=== PATIENT | male | born 1990 | race Caucasian/White ===

== ENCOUNTER 2020-06-10 11:31 | Emergency (ER) | payer BC, SELFPAY ==
[2020-06-10 11:39] VITALS: BP 146/97; PULSE 67; RESP 16; TEMP 36.8; O2SAT 100; BMI 20.7
--- NOTE | 2020-06-10 12:04 | ED_ITS ---
HPI - Wound/Laceration <Rima Luevano PA-C - Last Filed: 06/10/20 13:46> General Chief Complaint: Wound/Laceration Stated Complaint: wound to thumb left hand Time Seen by Provider: 06/10/20 11:51 Source: patient Mode of arrival: Ambulatory Limitations: no limitations History of Present Illness HPI narrative: Is a healthy 29-year-old male presents with complaints of laceration to his left thumb at the base of the thumb on top. He says he was moving some boxes and when he lifted a box up put in place as he was withdrawing his hand he cut it on the corner of the cardboard box. He did not really feel any pain but he realized he had hurt himself when he noticed that his base of his thumb was bleeding. He has no other complaints or concerns this is an isolated complaint. Onset (ago): minute(s) (40) Extremity Location: Left: hand (base of thumb (posterior)) Place: home Patient tetanus UTD: Yes Context: accidental Associated symptoms: pain Treatments prior to arrival: bandage Related Data Allergies Allergy/AdvReac Type Severity Reaction Status Date / Time No Known Drug Allergies Allergy Verified 06/10/20 11:39 Review of Systems <Rima Luevano PA-C - Last Filed: 06/10/20 13:46> Review of Systems Narrative: GENERAL: Denies chills, fatigue, malaise, fever, sweats. HEENT: Denies sinus pain, ear pain, sore throat, difficulty swallowing, dizziness. RESPIRATORY: Denies dyspnea, cough, wheezing, hemoptysis, sputum. CARDIOVASCULAR: Denies chest pain, palpitations, orthopnea, edema, GASTROINTESTINAL: Denies nausea, vomiting, abdominal pain, diarrhea, constipation, melena. : Denies dysuria, frequency, incontinence, hematuria, urinary retention. MUSCULOSKELETAL: denies weakness, joint pain, or bony pain SKIN: Denies rash, skin lesions, or other NEUROLOGIC: Denies weakness, headache, numbness, change in speech, confusion, seizures, incoordination. PSYCHIATRIC: No concerning psychosocial issues. 12 point review of systems is negative except for those stated above Patient History <Rima Luevano PA-C - Last Filed: 06/10/20 13:46> Social History Smoking Status: Never smoker Smoking Status: Never smoker alcohol intake frequency: a few times a week Substance Use Type: does not use Exam <Rima Luevano PA-C - Last Filed: 06/10/20 13:46> Narrative Exam Narrative: GENERAL: 29 year old patient appears stated age. Well-nourished, well-developed patient, in mild distress. HEAD: Atraumatic. Normocephalic. EYES: Pupils equal round and reactive. Extraocular motions intact. No scleral icterus. No injection or drainage. ENT: Nose without bleeding, purulent drainage. Throat without erythema, tonsillar hypertrophy or exudate. Airway patent. NECK: Trachea midline. Non tender CARDIOVASCULAR: Regular rate and rhythm without murmurs, gallops, or rubs. RESPIRATORY: Clear to auscultation. Breath sounds equal bilaterally. No wheezes, rales, or rhonchi. GASTROINTESTINAL: Abdomen soft, non-tender, nondistended. EXTREMITIES: Range of motion of the affected left hand is intact, strength is intact, sensation is intact. No edema or joint tenderness. BACK: Nontender without deformity or crepitance. No flank tenderness. NEURO: AOx3. SKIN: There is a flap avulsion on the left hand at the base of the thumb posteriorly that is full thickness without involvment of muscle, fascia, tendon. Bleeding controlled at time of arrival with direct pressure; approximately 3 cm in length. Sensation is intact, strength is intact, capillary refill is less than 2 seconds in the thumb and digits of the left hand. No other rash or erythema of visible areas Initial Vital Signs Initial Vital Signs: Vital Signs Temperature 98.2 F 06/10/20 11:39 Pulse Rate 67 06/10/20 11:39 Respiratory Rate 16 06/10/20 11:39 Blood Pressure 146/97 H 06/10/20 11:39 Pulse Oximetry 100 06/10/20 11:39 <Esha Amos DO - Last Filed: 06/11/20 08:03> Initial Vital Signs Initial Vital Signs: Vital Signs Temperature 98.2 F 06/10/20 11:39 Pulse Rate 67 06/10/20 11:39 Respiratory Rate 16 06/10/20 11:39 Blood Pressure 146/97 H 06/10/20 11:39 Pulse Oximetry 100 06/10/20 11:39 Procedures <Rima Luevano PA-C - Last Filed: 06/10/20 13:46> Laceration Repair Laceration 1: Site: hand Side (If applicable): left Size (cm): 3 Description: flap and clean Depth: simple, single layer Local Anesthetic: lidocaine 1% and with bicarb Amount of anesthesia used (mL): 6 Pre-repair: wound explored, irrigated extensively and deep structures intact Skin layer closed with: nylon Size (cm): 5-0 Number of sutures: 8 Technique: simple, interrupted Scores <GIANNA Bourgeois Last Filed: 06/10/20 13:46> ABCD2 Citation: Lancet. 2006Oct 28;369(3856):960-41. Validation and refinement of scores to predict very early stroke risk after transient ischaemic attack. Alea SC1, Johnathan PM, Carlo MN, Josh MF, Aleksander JS, Sophie AL, Vel S. GCS Boom coma scale eye opening: Spontaneous [place] coma scale verbal response: Orientated [place] coma scale motor response: Obey commands [place] coma scale total score: 15 Course <Rima Luevano PA-C - Last Filed: 06/10/20 13:46> Orders Ordered: Discontinued Medications Bacitracin (Bacitracin) 1 applic TOP NOW ONE Stop: 06/10/20 12:52 Last Admin: 06/10/20 13:01 Dose: 1 applic Documented by: JULISA Lidocaine/Sodium Bicarbonate (Buffered Lidocaine 10 Ml Syr) 10 ml INJ NOW ONE Stop: 06/10/20 12:09 Last Admin: 06/10/20 12:13 Dose: 10 ml Documented by: JULISA Vital Signs Vital signs: Vital Signs - 8 hr 06/10/20 11:39 06/10/20 13:13 Temperature 98.2 F Pulse Rate 67 64 Respiratory Rate 16 14 Blood Pressure 146/97 H 130/66 Pulse Oximetry 100 100 <Esha Amos DO - Last Filed: 06/11/20 08:03> Orders Ordered: Discontinued Medications Bacitracin (Bacitracin) 1 applic TOP NOW ONE Stop: 06/10/20 12:52 Last Admin: 06/10/20 13:01 Dose: 1 applic Documented by: JULISA Lidocaine/Sodium Bicarbonate (Buffered Lidocaine 10 Ml Syr) 10 ml INJ NOW ONE Stop: 06/10/20 12:09 Last Admin: 06/10/20 12:13 Dose: 10 ml Documented by: JULISA Vital Signs Vital signs: Vital Signs - 8 hr 06/10/20 11:39 06/10/20 13:13 Temperature 98.2 F Pulse Rate 67 64 Respiratory Rate 16 14 Blood Pressure 146/97 H 130/66 Pulse Oximetry 100 100 MDM - Wound/Laceration <Rima Luevano PA-C - Last Filed: 06/10/20 13:46> Differential Diagnosis Differential diagnosis: Likely laceration, avulsion of skin and other (vascular injury, nerve injury, muscle injury) Medical Records Attestation: I reviewed the patient's medical records. Lab Data Lab results narrative: No labs obtained MDM Narrative Medical decision making narrative: This is a well-appearing 29-year-old with no significant medical history who presents with a laceration avulsion sustained accidentally less than 1 hour prior to arrival to the base of his left thumb on the posterior side. No other complaints or concerns. Motor function, sensation and pulses are intact with capillary refill less than 2 seconds on the affected hand and thumb. X-rays are not obtained as movement function is intact, based on exam there is no deep structure involvement and based on history and exam no suspicion for puncture. Laceration is repaired as above in procedures, patient is instructed to follow-up with primary care provider or return for suture removal in 7-10 days. Emergency return precautions provided, all questions answered. Discharge Plan Departure Patient Disposition: Home Clinical Impression: Laceration of hand, left Qualifiers: Encounter type: initial encounter Foreign body presence: without foreign body Qualified Code(s): S61.412A - Laceration without foreign body of left hand, initial encounter Discharge Date/Time: 06/10/20 13:15 Instructions: How to Care for a Laceration After Repair, DI for Laceration Repair Activity Restrictions/Additional Instructions: Thank you for allowing us to be part of your care in the emergency department today. You had a laceration/avulsion at the base of your left thumb which we repaired in the emergency department with sutures, these will need to be removed in 7-10 days. For the next 24 hours I recommend you cover the area when you are showering after that it is fine to shower but please do not take any bad as go swimming or go in a hot tub with your hand until it has healed enough to have the sutures come out. I recommend you do not do as much activity with your left hand for the next few days to give your skin in a chance to come together and heal as this is a somewhat high movement area. Please monitor for any signs of infection including heat increased swelling redness, puss or increased pain at the area. Please call your primary care office for an appointment for suture removal. Please return to the Emergency Department for any worsening or persistent symptoms. Please take medications as directed. Referrals: [facility] [Outside] <Esha Amos DO - Last Filed: 06/11/20 08:03> [place] [facility] Attending Robb Attestation: I was immediately available in the department for consultation. Documentation has been reviewed. I agree with assessment and plan.
[2020-06-10] MEDS: LIDO 1%/SOD BICARB 8.4% (10ML) 10 ML SYRINGE INJ (12:13)
[2020-06-10] MEDS: BACITRACIN OINT 0.9 GM PCKT 1 APPLIC TOP (13:01)
--- NOTE | 2020-06-10 13:02 | PC.NURSE ---
CMS intact. Small amount of bleeding on arrival. TDAP up to date
[2020-06-10 13:13] VITALS: BP 130/66; PULSE 64; RESP 14; O2SAT 100
== END 2020-06-10 13:15 | disposition home or self-care (01) ==
PROVIDERS: Emergency Provider Student in an Organized Health Care Education/Training Program
DX: S61.412A Laceration without foreign body of left hand, initial encounter (principal); W26.8XXA Contact with other sharp object(s), not elsewhere classified, initial encounter
CPT/HCPCS: 12002; 99283